=== PATIENT | female | born 1960 | race Caucasian/White ===

== ENCOUNTER 2025-03-17 22:32 | Inpatient (IN) | payer BC ==
[~2025-03-17] VITALS: Ht 170.2 cm; Wt 70.5 kg
[2025-03-17] MEDS: METOPROLOL TARTRATE 1MG/1ML-5ML VIAL IV ONE (22:46)
[2025-03-17] MEDS: METOPROLOL TARTRATE 1MG/1ML-5ML VIAL IV SCH (22:48)
--- NOTE | 2025-03-17 22:58 | ED.PDOC ---
HPI Comments A 65 year-old female, with a SHX of Pacemaker, presents to the ED with a chief complaint of heart palpitations with associated nausea as of 2100 today. Patient reports a recorded an elevated heart rate of 200's via watch, to which she called EMS for further care. Per EMS, patients heart rate recorded 230 BPM. Patient was given 3 rounds of Adenosine, 4mg IV, and Zofran en route. Upon evaluation by ED physician, patient reports the palpitations as "drum-like" with no associated alleviating factors. Patient additionally reports having a pacemaker for low heart rate. Patient has no further complaints at this time and otherwise denies further associated symptoms of emesis, abdominal pain, migraine, dizziness, or LOC at this time. Chief Complaint: Palpitations Time Seen by MD: 22:46 Reviewed Notes: Medications, Allergies Allergies: Coded Allergies: Aspirin (Verified Allergy, Unknown, 03/17/25) Ibuprofen (Verified Allergy, Unknown, 03/17/25) Information Source: Patient Mode of Arrival: EMS Severity: Moderate Timing: Hours Duration: Since onset Prehospital treatment: 12 Lead EKG, Other (Zofran ) Associated Signs and Symptoms: Palpitations Past Medical History PAST MEDICAL HISTORY: Denies Surgical History: Pacemaker ERADICATOR History: No Pertinent ERADICATOR History Family History Family History: Reviewed,noncontributory to illness, No family hx of Cancer, No family hx of DM, No family hx of Heart rubio, No family hx of HTN, No family hx ofKidney rubio, No family hx of Liver rubio, No family hx of Lung rubio, No family hx of Stroke Social History Smoker: Non-Smoker Alcohol: Denies ETOH Use Drugs: Denies Drug Use Lives In: Home Constitutional: denies: chills, diaphoresis, fatigue, fever, malaise, sweats, weakness, others EENTM: denies: blurred vision, double vision, ear bleeding, ear discharge, ear drainage, ear pain, ear ringing, eye pain, eye redness, hearing loss, mouth pain, mouth swelling, nasal discharge, nose bleeding, nose congestion, nose pain, photophobia, tearing, throat pain, throat swelling, voice changes, others Respiratory: denies: cough, hemoptysis, orthopnea, SOB at rest, shortness of breath, SOB with excertion, stridor, wheezing, others Cardiovascular: reports: palpitations; denies: chest pain, dizzy spells, diaphoresis, Dyspnea on exertion, edema, irregular heart beat, left arm pain, lightheadedness, PND, syncope, others Gastrointestinal: reports: nausea; denies: abdomen distended, abdominal pain, blood streaked bowels, constipated, diarrhea, dysphagia, difficulty swallowing, hematemesis, melena, poor appetite, poor fluid intake, rectal bleeding, rectal pain, vomiting, others Genitourinary: denies: abnormal vagina bleeding, burning, dyspareunia, dysuria, flank pain, frequency, hematuria, incontinence, pain, , vagina discharge, urgency, others Neurological: denies: dizziness, fainting, headache, left sided numbness, left sided weakness, numbness, paresthesia, pre-existing deficit, right sided numbness, right sided weakness, seizure, speech problems, tingling, tremors, weakness, others Musculoskeletal: denies: back pain, gout, joint pain, joint swelling, muscle pain, muscle stiffness, neck pain, others Integumetry: denies: bruises, change in color, change in hair/nails, dryness, laceration, lesions, lumps, rash, wounds, others Allergic/Immunocompromised: denies: Difficulty Healing, Frequent Infections, Hives, Itching, others Hematologic/Lymphatic: denies: anemia, blood clots, easy bleeding, easy bruising, swollen glands, others Endocrine: denies: excessive hunger, excessive sweating, excessive thirst, excessive urination, flushing, intolerance to cold, intolerance to heat, unexplained weight gain, unexplained weight loss, others Psychiatric: denies: anxiety, bipolar disorder, depression, hopeless, panic disorder, schizophrenia, sleepless, suicidal, others All Other Systems: Reviewed and Negative Physical Exam General Appearance: Mild Distress, Moderate Distress HEENT: Normal ENT Inspection, Pharynx Normal, TMs Normal Neck: Full Range of Motion, Non-Tender, Normal, Normal Inspection Respiratory: Chest Non-Tender, Lungs Clear, No Accessory Muscle Use, No Respiratory Distress, Normal Breath Sounds Cardiovascular: Tachycardia, Other (irregularly irregular rhythm) Breast Exam: Deferred Gastrointestinal: No Organomegaly, Non Tender, No Pulsatile Mass, Normal Bowel Sounds, Soft Genitalia: Deferred Pelvic: Deferred Rectal: Deferred Extremities: No calf tenderness, Normal capillary refill, Normal inspection, Normal range of motion, Non-tender, No pedal edema Musculoskeletal : Apperance: Normal Neurologic: Alert, top lifter II-XII nml as Tested, No Motor Deficits, Normal Affect, Normal Mood, No Sensory Deficits Cerebellar Function: Normal Reflexes: Normal Skin: Dry, Normal Color, Warm Lymphatic: No Adenopathy EKG EKG : Pulse Rate (adult): 161 Cardiac Rhythm: Afib Was a procedure done? Was a procedure done?: No CP Differential Dx Differential Diagnosis: A-fib Differential Diagnosis: HTN Essential Differential Diagnosis: Chest Wall Pain X-Ray, Labs, Meds, VS Vital Signs Date Time Temp Pulse Resp B/P (MAP) Pulse Ox O2 Delivery O2 Flow Rate FiO2 03/17/25 23:34 139 19 96 Room Air* 0 21 03/17/25 23:23 131 117/50 03/17/25 22:58 138 17 109/77 (88) 96 03/17/25 22:58 161 03/17/25 22:48 166 164/84 03/17/25 22:35 161 03/17/25 22:32 98.2 215 20 138/80 (99) 98 98.2 03/17/25 22:32 98 Room Air* 0 21 Lab Test 03/17/25 23:29 03/17/25 22:57 Range/Units Urine Color Colorless Yellow Urine Clarity Clear Clear Urine pH 7.0 5.0-9.0 Urine Specific [place] 1.003 1.001-1.035 Urine Protein Negative Negative Urine Ketones Trace Negative Urine Blood Negative Negative /uL Urine Nitrite Negative Negative Urine Bilirubin Negative Negative Urine Urobilinogen Normal Negative mg/dL Urine Leukocyte Esterase Negative Negative /uL Urine RBC <1 0 - 4 /hpf Urine Microscopic WBC 2 0-5 /HPF Urine Squamous Epithelial Cells Few <5 /hpf Urine Bacteria None seen None Seen /hpf Urine Glucose Normal Normal mg/dL White Blood Count 6.4 4.4-10.8 10^3/uL Red Blood Count 5.57 H 4.0-5.20 10^6/uL Hemoglobin 17.0 H 12.2-16.2 g/dL Hematocrit 49.7 H 36.0-46.0 % Mean Corpuscular Volume 89.2 80.0-100.0 fL Mean Corpuscular Hemoglobin 30.5 28.0-32.0 pg Mean Corpuscular Hemoglobin Concent 34.3 32.0-36.0 g/dL Red Cell Distribution Width 13.5 11.8-14.3 % Platelet Count 218 140-450 10^3/uL Mean Platelet Volume 7.6 6.9-10.8 fL Neutrophils (%) (Auto) 55.1 37.0-80.0 % Lymphocytes (%) (Auto) 33.7 10.0-50.0 % Monocytes (%) (Auto) 8.8 0.0-12.0 % Eosinophils (%) (Auto) 1.7 0.0-7.0 % Basophils (%) (Auto) 0.7 0.0-2.0 % Neutrophils # (Auto) 3.5 1.6-8.6 10 ^3/uL Lymphocytes # (Auto) 2.1 0.4-5.4 10 ^3/uL Monocytes # (Auto) 0.6 0-1.3 10 ^3/uL Eosinophils # (Auto) 0.1 0-0.8 10 ^3/uL Basophils # (Auto) 0 0-0.2 10 ^3/uL Nucleated Red Blood Cells 0.1 % Prothrombin Time 10.3 9.3-11.8 sec Prothrombin Time INR 0.97 0.9-1.15 Activated Partial Thromboplast Time 26.2 24.5-34.5 SEC Sodium Level 146 H 136-145 mmol/L Potassium Level 3.7 3.5-5.1 mmol/L Chloride Level 110 H 98-107 mmol/L Carbon Dioxide Level 25 20-31 mmol/L Anion Gap 11 5-15 Blood Urea Nitrogen 18 9-23 mg/dL Creatinine 0.81 0.550-1.02 mg/dL Glomerular Filtration Rate Calc 82 >90 mL/min BUN/Creatinine Ratio 22.2 H 10.0-20.0 Serum Glucose 112 H 74-106 mg/dL Calcium Level 9.7 8.7-10.4 mg/dL Total Bilirubin 0.6 0.2-1.0 mg/dL Aspartate Amino Transferase (AST) 29 13-40 U/L Alanine Aminotransferase (ALT) 26 7-40 U/L Alkaline Phosphatase 85 46-116 U/L Troponin I High Sensitivity 3 L </=34 ng/L Total Protein 7.2 5.7-8.2 g/dL Albumin 4.6 3.2-4.8 g/dL Thyroid Stimulating Hormone (TSH) 2.67 0.55-4.78 uIU/mL Free Thyroxine (T4) Calculated Pending Current Medications Medications (Trade) Dose Ordered Sig/Lyndsey Route Start Time Stop Time Status Last Admin Metoprolol Tartrate (Lopressor) 5 mg Q5M IV 03/17/25 22:45 03/17/25 22:48 [place] [id number] Ph: [phone] DIAGNOSTIC IMAGING Diagnostic Imaging Report : [id number] Signed PATIENT: WALT BILLS ACCT: [id number] UNIT: [id number] : 1960 LOC: ER ROOM / BED: / AGE / SEX: 65 / F ADM STATUS: REG ER SERVICE 38 ORDERING PHYSICIAN: FABY MACKAY MD PROCEDURE(s): CXRP - CHEST PORTABLE REASON: chest pain ORDER NUMBER(s): [id number], ACCESSION NUMBER(s): [id number] CHEST RADIOGRAPH Indication: chest pain Technique: Single frontal view of the chest was obtained COMPARISON: None FINDINGS: Lines and Tubes: Pacemaker/ AICD in the left upper chest with 2 cardiac leads. Lungs: Clear Pleura: No effusion. No pneumothorax. Cardiomediastinal contours: Unremarkable Bones: Unremarkable IMPRESSION: 1. No acute disease. Time of 1ST Reevaluation: 23:01 Reevaluation 1ST: Unchanged Patient Education/Counseling: Diagnosis, Treatment Family Education/Counseling: No Family Present SEPSIS Sepsis Screen Physician Orders Electrocardigram (03/17/25 22:38) Electrocardigram (03/17/25 23:38) Electrocardigram (03/18/25 01:38) Troponin-I Hs (03/18/25 00:00) Troponin-I Hs (03/18/25 03:00) Troponin-I Hs (03/18/25 06:00) Chest Portable (03/17/25 22:39) Troponin-I Hs (03/18/25 01:39) Free T4 (Free Thyroxine) (03/17/25 22:39) Metoprolol Inj (Lopressor) (03/17/25 22:45) Amiodarone Bolus Kit (Cordarone) (03/17/25 23:45) Amiodarone 360mg/200ml Premix (Nexterone (03/18/25 00:00) Amiodarone 360mg/200ml Premix (Nexterone (03/18/25 06:00) Vital Signs Date Time Temp Pulse Resp B/P (MAP) Pulse Ox O2 Delivery O2 Flow Rate FiO2 03/17/25 23:34 139 19 96 Room Air* 0 21 03/17/25 23:23 131 117/50 03/17/25 22:58 138 17 109/77 (88) 96 03/17/25 22:58 161 03/17/25 22:48 166 164/84 03/17/25 22:35 161 03/17/25 22:32 98.2 215 20 138/80 (99) 98 98.2 03/17/25 22:32 98 Room Air* 0 21 Laboratory Tests Test 03/17/25 22:57 White Blood Count 6.4 10^3/uL (4.4-10.8) Medications Medications Dose Ordered Sig/Lyndsey Route Start Time Stop Time Status Last Admin Dose Admin Metoprolol Tartrate 5 mg Q5M IV 03/17/25 22:45 03/17/25 22:48 Departure 1 Departure Time of Disposition: 23:50 Impression: Primary Impression: New onset atrial fibrillation Additional Impression: Atrial fibrillation with rapid ventricular response Disposition: ADMITTED INPATIENT Condition: Stable Discharged With: Self Comments Atrial Fibrillation with Rapid Ventricular Response in Patient with Recent Pacemaker Chief Complaint: Palpitations, 'racing heart' History of Present Illness: Patient is a 65-year-old female with a history of bradycardic arrhythmias who recently received a pacemaker. She presented to the emergency department via ambulance after experiencing palpitations described as her heart 'racing and pounding' at home. EMS noted the patient had a tachycardic irregular rhythm during transport. Upon arrival to the ED, the patient was found to be in atrial fibrillation with a tachycardic irregularly irregular rhythm. Her heart rate was elevated at approximately 140-150 beats per minute. This appears to be new onset atrial fibrillation with rapid ventricular response in a patient with a recently placed pacemaker. Review of Systems: Limited by acute presentation. Cardiovascular: Palpitations, sensation of racing heart. Constitutional: No fever reported. Respiratory: No shortness of breath documented. Neurological: Alert and oriented, no syncope reported. Medications: Home medications not specified in net developer architect. Medications administered in ED: - Metoprolol (Lopressor) 5 mg IV boluses - Amiodarone 150 mg IV bolus, followed by continuous infusion Allergies: Not documented in net developer architect Past Medical History: Bradycardic arrhythmias Recent pacemaker placement Vital Signs: Heart Rate: Initially 140-150 bpm, decreased to 120 bpm after Lopressor administration Blood Pressure: Decreased to 95 mmHg systolic after Lopressor administration Other vital signs not documented in net developer architect Physical Exam: Cardiovascular: Irregularly irregular rhythm, tachycardic at 140-150 bpm initially Other physical exam findings not documented in net developer architect Lab Results: CBC: Unremarkable Chemistry Panel: - Sodium: 146 mEq/L (elevated) - Chloride: 110 mEq/L (elevated) - Other electrolytes: Within normal limits Cardiac Enzymes: - Troponin: 3 ng/mL (within normal limits) Imaging and Other Relevant Results: Chest X-ray: No acute pathology Medical Decision Making: Summary Statement: 65-year-old female with recent pacemaker placement for bradycardic arrhythmias presenting with new onset atrial fibrillation with rapid ventricular response, requiring rate control and admission for further management. Problem List: 1. New onset atrial fibrillation with rapid ventricular response 2. Recent pacemaker placement 3. Possible acute coronary syndrome 4. Mild electrolyte abnormalities (elevated sodium and chloride) Differential Diagnosis: 1. Pacemaker malfunction or inappropriate programming 2. Primary new onset atrial fibrillation 3. Acute coronary syndrome triggering arrhythmia 4. Electrolyte imbalance contributing to arrhythmia 5. Pulmonary embolism 6. Thyroid dysfunction ED Course: Patient initially treated with IV Metoprolol (Lopressor) 5 mg boluses for rate control, which reduced heart rate from 150 to 120 bpm but caused hypotension with systolic BP of 95 mmHg. Treatment was switched to Amiodarone 150 mg IV bolus followed by continuous infusion. Diagnostic workup included CBC, chemistry panel, cardiac enzymes, and chest X-ray. Decision made to admit patient for management of new onset atrial fibrillation with RVR and to rule out acute coronary syndrome. Assessment and Plan: 1. New Onset Atrial Fibrillation with Rapid Ventricular Response: - Continue Amiodarone infusion for rate and rhythm control - Cardiology consultation for management recommendations - Evaluate for potential causes of new onset atrial fibrillation - Assess pacemaker function and settings - Consider anticoagulation based on GLENN?DS?-VASc score 2. Recent Pacemaker Placement: - Obtain device interrogation to assess pacemaker function - Review recent implantation records - Evaluate for potential device-related complications 3. Rule Out Acute Coronary Syndrome: - Serial cardiac enzymes - ECG monitoring - Consider stress testing or cardiac catheterization if indicated 4. Electrolyte Management: - Monitor and correct mild electrolyte abnormalities (sodium 146 mEq/L, chloride 110 mEq/L) - Repeat electrolyte panel in the morning 5. Disposition: - Admit to telemetry unit under cardiology service - Continue cardiac monitoring - Reassess treatment plan based on response to therapy Additional Notes: Patient arrived via ambulance with tachycardia, diagnosed with new onset atrial fibrillation with RVR, requiring admission. Billing Information: ICD-10: I48.91 - Unspecified atrial fibrillation ICD-10: R00.0 - Tachycardia, unspecified ICD-10: Z95.0 - Presence of cardiac pacemaker Critical Care Note Critical Care Time?: Yes (35 min-critical care time only) Critical care comment: Total critical care time: Approximately 36 minutes Due to a high probability of clinically significant, life threatening deterioration, the patient required my highest level of preparedness to intervene emergently and I personally spent this critical care time directly and personally managing the patient. This critical care time included obtaining a history; examining the patient; pulse oximetry; ordering and review of studies; arranging urgent treatment with development of a management plan; evaluation of patient's response to treatment; frequent reassessment; and, discussions with other providers. This critical care time was performed to assess and manage the high probability of imminent, life-threatening deterioration that could result in multi-organ failure. It was exclusive of separately billable procedures and treating other patients. Stability Stability form required: No Heart Score Heart Score: Heart Score Response (Comments) Value History Moderate Suspicious 1 EKG Repolarization Disturb 1 Age 45-64 1 Risk Factors 1 or 2 risk factors 1 Troponin Normal limit 0 Total 4 I personally scribed for FABY MACKAY MD ([email or web address]) on 03/17/25 at 22:58. Electronically submitted by Joanne Kwon ([employer]). I personally scribed for FABY MACKAY MD ([email or web address]) on 03/17/25 at 23:10. El ectronically submitted by Joanne Kwon ([employer]). I personally scribed for FABY MACKAY MD ([facility]ARILYS) on 03/17/25 at 23:31. Electronically submitted by Joanne Kwon ([facility]). FABY MACKAY MD Mar 17, 2025 22:58
[2025-03-17 23:03] LABS: Hematocrit 49.7 % (36.0-46.0); Hemoglobin 17.0 g/dL (12.2-16.2); Mean Corpuscular Hemoglobin 30.5 pg (28.0-32.0); Mean Corpuscular Volume 89.2 fL (80.0-100.0); Nucleated Red Blood Cells % 0.1 %
--- NOTE | 2025-03-17 23:08 | DVH ---
CHEST RADIOGRAPH Indication: chest pain Technique: Single frontal view of the chest was obtained COMPARISON: None FINDINGS: Lines and Tubes: Pacemaker/ AICD in the left upper chest with 2 cardiac leads. Lungs: Clear Pleura: No effusion. No pneumothorax. Cardiomediastinal contours: Unremarkable Bones: Unremarkable IMPRESSION: 1. No acute disease.
[2025-03-17 23:18] LABS: INR 0.97 (0.9-1.15); Partial Thromboplastin Time 26.2 SEC (24.5-34.5); Prothrombin Time 10.3 sec (9.3-11.8)
[2025-03-17 23:24] LABS: Alanine Aminotransferase 26 U/L (7-40); Albumin 4.6 g/dL (3.2-4.8); Alkaline Phosphatase 85 U/L (46-116); Anion Gap 11 (5-15); BUN/Creatinine Ratio 22.2 (10.0-20.0); Blood Urea Nitrogen 18 mg/dL (9-23); Calcium 9.7 mg/dL (8.7-10.4); Carbon Dioxide 25 mmol/L (20-31); Potassium 3.7 mmol/L (3.5-5.1); Total Protein 7.2 g/dL (5.7-8.2)
[2025-03-17 23:25] LABS: Bilirubin, Total 0.6 mg/dL (0.2-1.0)
[2025-03-17 23:27] LABS: Chloride 110 mmol/L (98-107); Glucose 112 mg/dL (74-106); Sodium 146 mmol/L (136-145)
[2025-03-17 23:34] VITALS: PULSE 139; RESP 19; O2SAT 96
[2025-03-17 23:40] LABS: Urine Protein, UAD Negative (Negative)
[2025-03-17] MEDS: AMIODARONE BOLUS KIT 100 ML IV ONE (23:53)
[2025-03-18] VITALS (14 sets, daily range): BP systolic 81–104; BP diastolic 39–78; PULSE 65–120; RESP 10–23; TEMP 98–98.4; O2SAT 93–97
[2025-03-18] MEDS: AMIODARONE 360mg/200mL PREMIX 200 ML IV ONE (00:02)
[2025-03-18] MEDS: ONDANSETRON HCL 4 MG/2 ML VIAL IV ONE (00:22)
[2025-03-18] MEDS: METOPROLOL TARTRATE 1MG/1ML-5ML VIAL IV ONE (05:08)
[2025-03-18] MEDS: SODIUM CHLORIDE 0.9% 500 ML IV ONE (05:42)
[2025-03-18] MEDS: AMIODARONE 360mg/200mL PREMIX 200 ML IV SCH (05:57)
[2025-03-18] MEDS ORDERED: NITROGLYCERIN 0.4 MG SL TAB SL PRN (06:15)
[2025-03-18] MEDS ORDERED: MORPHINE SULFATE INJ 2 MG/ml SYRG IV PRN (06:15)
--- NOTE | 2025-03-18 06:54 | DVHHP2 ---
Admitting Diagnosis: Afib RVR History of Present Illness HPI 65 y.o. female with AICD/pacemaker arrived to the ED c/o palpitations with HR 200 with nausea for one day. Paramedics reported recorded HR of 230. Patient was given of Adenosine 4mg IV x3 and Zofran en route. Patient denied CP, SOB an other symptoms. ER MD started Amiodarone IV the decreased the HR to 110-115. Past Medical History Past Surgical History: AICD Review of Systems Cardiovascular: Palpitations H&P Exam Vital Signs Vital Signs Date Time Temp Pulse Resp B/P (MAP) Pulse Ox O2 Delivery O2 Flow Rate FiO2 03/18/25 05:08 114 96/51 03/18/25 05:00 17 96 03/17/25 23:34 Room Air* 0 21 03/17/25 22:32 98.2 98.2 General Appeara: Obese Head Exam: Normal inspection Neck Exam: Non-tender Eye Exam: bilateral eye PERRL, bilateral eye EOMI Pulmonary/Respiratory: Lungs clear Cardiovascular/Chest: Tachycardia Neuro/Mental St: Alert, Oriented SEPSIS Sepsis Screen Date sepsis recognized/suspect: Mar 17, 2025 Time Sepsis recognized/suspect: 2231 Recent Procedure: No On Antibiotic Therapy: No Respiratory Rate >20: No Heart Rate >90: Yes Temp<36 C (96.8 F) or >38.3 C: No SBP <90 or MAP <65 mmHG: No New Acute Mental Status Change: No Is the patient on CPAP, BIPAP,: No Physician Orders Electrocardigram (03/17/25 22:38) Electrocardigram (03/17/25 23:38) Electrocardigram (03/18/25 01:38) Chest Portable (03/17/25 22:39) Free T4 (Free Thyroxine) (03/17/25 22:39) Amiodarone 360mg/200ml Premix (Nexterone (03/18/25 06:00) Sodium Chloride 0.9% (03/18/25 05:45) Admit (03/18/25 06:06) * Cardiology Consult (03/18/25 06:06) Complete Blood Count (03/19/25 06:00) Comprehensive Metabolic Panel (03/18/25 06:00) Echo 2d Mode Cardiac Dop (03/18/25 06:06) Nitroglycerin Sublingual (Ntrostat Subli (03/18/25 06:15) Morphine Sulfate Injection (03/18/25 06:15) Stat Ekg For Chest Pain (03/18/25 06:06) Notify Of Changes From Base (03/18/25 06:06) Public Health Microbiologist For 24 Hours (03/18/25 06:06) Emergency Dysrhythmia Protocol (03/18/25 06:06) Rhythm Strips Once Every Shift (03/18/25 06:06) Oxygen By Nasal Cannula (03/18/25 06:06) Vital Signs Date Time Temp Pulse Resp B/P (MAP) Pulse Ox O2 Delivery O2 Flow Rate FiO2 03/18/25 05:08 114 96/51 03/18/25 05:00 114 17 96/51 (66) 96 03/18/25 04:30 115 18 85/54 (64) 97 03/18/25 04:00 114 18 87/57 (67) 97 03/18/25 03:30 113 16 112/52 (72) 96 03/18/25 02:30 116 03/18/25 02:00 117 20 92/58 (69) 96 03/18/25 01:15 119 17 98/66 (77) 95 03/18/25 00:00 119 16 95/59 (71) 96 03/17/25 23:34 139 19 96 Room Air* 0 21 03/17/25 23:23 131 117/50 03/17/25 23:10 103 03/17/25 23:05 103 03/17/25 22:58 138 17 109/77 (88) 96 03/17/25 22:58 161 03/17/25 22:55 134 91/56 03/17/25 22:48 166 164/84 03/17/25 22:38 173 Laboratory Tests Test 03/17/25 22:57 White Blood Count 6.4 10^3/uL (4.4-10.8) Medications Medications Dose Ordered Sig/Lyndsey Route Start Time Stop Time Status Last Admin Dose Admin Amiodarone HCl 100 ml @ 600 mls/hr ONCE ONCE IV 03/17/25 23:45 03/17/25 23:54 DC 03/17/25 23:53 600 MLS/HR Metoprolol Tartrate 5 mg Q5M IV 03/17/25 22:45 03/18/25 04:25 DC 03/17/25 22:48 5 MG Ondansetron HCl 4 mg ONCE ONCE IV 03/18/25 00:30 03/18/25 00:31 DC 03/18/25 00:22 4 MG Sodium Chloride 500 ml @ 500 mls/hr Q1H ONCE IV 03/18/25 05:45 03/18/25 06:44 03/18/25 05:42 500 MLS/HR Labs/Xrays Labs Test 03/18/25 00:18 03/17/25 23:29 03/17/25 22:57 Range/Units Troponin I High Sensitivity 8 </=34 ng/L Urine Color Colorless Yellow Urine Clarity Clear Clear Urine pH 7.0 5.0-9.0 Urine Specific [place] 1.003 1.001-1.035 Urine Protein Negative Negative Urine Ketones Trace Negative Urine Blood Negative Negative /uL Urine Nitrite Negative Negative Urine Bilirubin Negative Negative Urine Urobilinogen Normal Negative mg/dL Urine Leukocyte Esterase Negative Negative /uL Urine RBC <1 0 - 4 /hpf Urine Microscopic WBC 2 0-5 /HPF Urine Squamous Epithelial Cells Few <5 /hpf Urine Bacteria None seen None Seen /hpf Urine Glucose Normal Normal mg/dL White Blood Count 6.4 4.4-10.8 10^3/uL Red Blood Count 5.57 H 4.0-5.20 10^6/uL Hemoglobin 17.0 H 12.2-16.2 g/dL Hematocrit 49.7 H 36.0-46.0 % Mean Corpuscular Volume 89.2 80.0-100.0 fL Mean Corpuscular Hemoglobin 30.5 28.0-32.0 pg Mean Corpuscular Hemoglobin Concent 34.3 32.0-36.0 g/dL Red Cell Distribution Width 13.5 11.8-14.3 % Platelet Count 218 140-450 10^3/uL Mean Platelet Volume 7.6 6.9-10.8 fL Neutrophils (%) (Auto) 55.1 37.0-80.0 % Lymphocytes (%) (Auto) 33.7 10.0-50.0 % Monocytes (%) (Auto) 8.8 0.0-12.0 % Eosinophils (%) (Auto) 1.7 0.0-7.0 % Basophils (%) (Auto) 0.7 0.0-2.0 % Neutrophils # (Auto) 3.5 1.6-8.6 10 ^3/uL Lymphocytes # (Auto) 2.1 0.4-5.4 10 ^3/uL Monocytes # (Auto) 0.6 0-1.3 10 ^3/uL Eosinophils # (Auto) 0.1 0-0.8 10 ^3/uL Basophils # (Auto) 0 0-0.2 10 ^3/uL Nucleated Red Blood Cells 0.1 % Prothrombin Time 10.3 9.3-11.8 sec Prothrombin Time INR 0.97 0.9-1.15 Activated Partial Thromboplast Time 26.2 24.5-34.5 SEC Thyroid Stimulating Hormone (TSH) 2.67 0.55-4.78 uIU/mL Assessment/Plan Problem List: (1) Atrial fibrillation with rapid ventricular response (2) AICD (automatic cardioverter/defibrillator) present Plan Continue Amiodarone, ECHO, consult cardiology Plan discussed with: Patient MAGNOLIA MARIA MD Mar 18, 2025 06:54
[2025-03-18 08:22] LABS: Alanine Aminotransferase 22 U/L (7-40); Albumin 4.1 g/dL (3.2-4.8); Alkaline Phosphatase 69 U/L (46-116); Anion Gap 9 (5-15); BUN/Creatinine Ratio 20.7 (10.0-20.0); Blood Urea Nitrogen 17 mg/dL (9-23); Calcium 9.4 mg/dL (8.7-10.4); Carbon Dioxide 25 mmol/L (20-31); Total Protein 6.2 g/dL (5.7-8.2)
[2025-03-18 08:23] LABS: Bilirubin, Total 0.4 mg/dL (0.2-1.0)
[2025-03-18 08:25] LABS: Chloride 110 mmol/L (98-107); Glucose 109 mg/dL (74-106); Potassium 4.2 mmol/L (3.5-5.1); Sodium 144 mmol/L (136-145)
--- NOTE | 2025-03-18 09:13 | ECG ---
[facility] Test Date: 2025-03-18 Test Time: 09:12:02 Pat Name: WALT BILLS Department: ED Room: [address] [place] [id number] Gender: F Systems Protection Technician: MIKE : 1960 Requested By: EMERGENCY EMERGENCY Order Number: [id number] Reading MD: Jai Lennon Measurements Intervals [place] Rate: 114 P: 0 NC: 0 QRS: 73 QRSD: 84 T: 33 QT: 333 QTc: 459 Interpretive Statements Atrial fibrillation Low voltage, precordial leads Electronically Signed On 03-21-2025 17:48:09 PDT by Jai Lennon Please click the below link to view image of tracing.
--- NOTE | 2025-03-18 14:39 | DVHSR ---
APPROVED REPORT EXAM: LIMITED Two-dimensional and M-mode echocardiogram with Doppler and color Doppler. Blood Pressure: 102/63 mmHg INDICATION Atrial Fibrillation W/RVR RISK FACTORS Height: 5' 7", Weight: 150 DIMENSIONS LVDd3.8 (3.8-5.7cm)LA (2D)3.3 (1.9-4.0cm)Aortic Root2.9 (2.0-3.7cm) LVDs2.9 (2.5-4.0cm)LA (MM) (1.9-4.0cm)Aortic Cusp Exc1.5 (1.5-2.0cm) EF (%) 47.0 (55-70%)Rt. Atrium3.4 (1.9-4.0cm)Asc. Aorta cm IVSd1.0 (0.7-1.1cm)RV (D) (1.8-2.4cm) PWd0.9 (0.7-1.1cm) Mitral Valve MitralMitral Stenosis E wave0.70m/sMV Mean GR.mmHg E/A ratio0.02D MVAcm2 Aortic Valve Aortic ValveAortic Stenosis V10.70m/Leydi Mean GR.2mmHg V20.80m/Leydi Peak GR.3mmHg LVOT Diameter2.2 (1.8-2.4cm)Doppler AVA3.32cm2 Pulmonic Valve V20.50m/s Conclusion MILD LVH AND MILD LV DIASTOLIC DYSFUNCTION LV EF IS 45% AND IS BORDERLINE EDUCED DYSKINESIS OF IVS MODERATELY DILATED RV NORMAL VALVES NO EFFUSION
[2025-03-18] MEDS: AMIODARONE HCL 200 MG TAB PO ONE (14:58)
[2025-03-18] MEDS: DIGOXIN (250MCG/ML) 2 ML AMPULE IV ONE (14:59)
[2025-03-18] MEDS: LACTATED RINGER'S 1,000 ML IV ONE (17:15)
--- NOTE | 2025-03-18 18:16 | DVHINCON2 ---
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 Patient reports a recorded elevated heart rate in the 200's from her smart watch, to which she called EMS for further care. Per EMS, patients heart rate was recorded at 230 BPM. Patient was given of Adenosine 4mg IV x3 and Zofran en route. Patient describes the heart palpitations as "drum-like" with no associated alleviating factors. Troponin is negative x2. Chest x-ray showed NAD.EKG in the ED showed A Fib at 161. Patient was admitted to the hospital. I am asked to consult on this patient. Allergies: Coded Allergies: Aspirin (Verified Allergy, Unknown, 03/17/25) Ibuprofen (Verified Allergy, Unknown, 03/17/25) Current Medications Current Medications Medications (Trade) Dose Ordered Sig/Lyndsey Route PRN Reason Start Time Stop Time Status Last Admin Metoprolol Tartrate (Lopressor) 5 mg Q5M IV 03/17/25 22:45 03/18/25 04:25 DC 03/17/25 22:48 Nitroglycerin (Ntrostat Sublingual) 0.4 mg Q5MINP PRN SL FOR CHEST PAIN 03/18/25 06:15 Morphine Sulfate 2 mg Q30M PRN IV FOR CHEST PAIN 03/18/25 06:15 Review of Systems Constitutional: denies: chills, diaphoresis, fatigue, fever, malaise, sweats, weakness, others EENTM: denies: blurred vision, double vision, ear bleeding, ear discharge, ear drainage, ear pain, ear ringing, eye pain, eye redness, hearing loss, mouth pain, mouth swelling, nasal discharge, nose bleeding, nose congestion, nose pain, photophobia, tearing, throat pain, throat swelling, voice changes, others Respiratory: denies: cough, hemoptysis, orthopnea, SOB at rest, shortness of breath, SOB with excertion, stridor, wheezing, others Cardiovascular: reports: palpitations; denies: chest pain, dizzy spells, diaphoresis, Dyspnea on exertion, edema, irregular heart beat, left arm pain, lightheadedness, PND, syncope, others Gastrointestinal: reports: nausea; denies: abdomen distended, abdominal pain, blood streaked bowels, constipated, diarrhea, dysphagia, difficulty swallowing, hematemesis, melena, poor appetite, poor fluid intake, rectal bleeding, rectal pain, vomiting, others Genitourinary: denies: abnormal vagina bleeding, burning, dyspareunia, dysuria, flank pain, frequency, hematuria, incontinence, pain, , vagina discharge, urgency, others Neurological: denies: dizziness, fainting, headache, left sided numbness, left sided weakness, numbness, paresthesia, pre-existing deficit, right sided numbness, right sided weakness, seizure, speech problems, tingling, tremors, weakness, others Musculoskeletal: denies: back pain, gout, joint pain, joint swelling, muscle pain, muscle stiffness, neck pain, others Integumetry: denies: bruises, change in color, change in hair/nails, dryness, laceration, lesions, lumps, rash, wounds, others Allergic/Immunocompromised: denies: Difficulty Healing, Frequent Infections, Hives, Itching, others Hematologic/Lymphatic: denies: anemia, blood clots, easy bleeding, easy bruising, swollen glands, others Endocrine: denies: excessive hunger, excessive sweating, excessive thirst, excessive urination, flushing, intolerance to cold, intolerance to heat, unexplained weight gain, unexplained weight loss, others Psychiatric: denies: anxiety, bipolar disorder, depression, hopeless, panic disorder, schizophrenia, sleepless, suicidal, others All Other Systems: Reviewed and Negative Vital Signs Vital Signs Date Time Temp Pulse Resp B/P (MAP) Pulse Ox O2 Delivery O2 Flow Rate FiO2 03/18/25 10:00 16 96 Room Air* 0 21 03/18/25 10:00 113 100/78 (85) 03/18/25 08:51 98.0 98.0 Physical Exam GENERAL: Alert and oriented x 3. No acute distress. Obese. EYES: PERRL, EOMI. Anicteric. HENT: Moist mucous membranes. LUNGS: Clear to auscultation bilaterally. CARDIOVASCULAR: Irregular rate and rhythm. ABDOMEN: Soft, nontender and nondistended. EXTREMITIES: No edema. NEUROLOGIC: No focal neurological deficits. SKIN: Warm, dry. Labs/Diagnostic Data Labs Test 03/18/25 07:53 03/18/25 00:18 03/17/25 23:29 03/17/25 22:57 Range/Units Sodium Level 144 136-145 mmol/L Potassium Level 4.2 3.5-5.1 mmol/L Chloride Level 110 H 98-107 mmol/L Carbon Dioxide Level 25 20-31 mmol/L Anion Gap 9 5-15 Blood Urea Nitrogen 17 9-23 mg/dL Creatinine 0.82 0.550-1.02 mg/dL Glomerular Filtration Rate Calc 80 >90 mL/min BUN/Creatinine Ratio 20.7 H 10.0-20.0 Serum Glucose 109 H 74-106 mg/dL Calcium Level 9.4 8.7-10.4 mg/dL Magnesium Level 2.0 1.6-2.6 mg/dL Total Bilirubin 0.4 0.2-1.0 mg/dL Aspartate Amino Transferase (AST) 25 13-40 U/L Alanine Aminotransferase (ALT) 22 7-40 U/L Alkaline Phosphatase 69 46-116 U/L Total Protein 6.2 5.7-8.2 g/dL Albumin 4.1 3.2-4.8 g/dL Troponin I High Sensitivity 8 </=34 ng/L Urine Color Colorless Yellow Urine Clarity Clear Clear Urine pH 7.0 5.0-9.0 Urine Specific [place] 1.003 1.001-1.035 Urine Protein Negative Negative Urine Ketones Trace Negative Urine Blood Negative Negative /uL Urine Nitrite Negative Negative Urine Bilirubin Negative Negative Urine Urobilinogen Normal Negative mg/dL Urine Leukocyte Esterase Negative Negative /uL Urine RBC <1 0 - 4 /hpf Urine Microscopic WBC 2 0-5 /HPF Urine Squamous Epithelial Cells Few <5 /hpf Urine Bacteria None seen None Seen /hpf Urine Glucose Normal Normal mg/dL White Blood Count 6.4 4.4-10.8 10^3/uL Red Blood Count 5.57 H 4.0-5.20 10^6/uL Hemoglobin 17.0 H 12.2-16.2 g/dL Hematocrit 49.7 H 36.0-46.0 % Mean Corpuscular Volume 89.2 80.0-100.0 fL Mean Corpuscular Hemoglobin 30.5 28.0-32.0 pg Mean Corpuscular Hemoglobin Concent 34.3 32.0-36.0 g/dL Red Cell Distribution Width 13.5 11.8-14.3 % Platelet Count 218 140-450 10^3/uL Mean Platelet Volume 7.6 6.9-10.8 fL Neutrophils (%) (Auto) 55.1 37.0-80.0 % Lymphocytes (%) (Auto) 33.7 10.0-50.0 % Monocytes (%) (Auto) 8.8 0.0-12.0 % Eosinophils (%) (Auto) 1.7 0.0-7.0 % Basophils (%) (Auto) 0.7 0.0-2.0 % Neutrophils # (Auto) 3.5 1.6-8.6 10 ^3/uL Lymphocytes # (Auto) 2.1 0.4-5.4 10 ^3/uL Monocytes # (Auto) 0.6 0-1.3 10 ^3/uL Eosinophils # (Auto) 0.1 0-0.8 10 ^3/uL Basophils # (Auto) 0 0-0.2 10 ^3/uL Nucleated Red Blood Cells 0.1 % Prothrombin Time 10.3 9.3-11.8 sec Prothrombin Time INR 0.97 0.9-1.15 Activated Partial Thromboplast Time 26.2 24.5-34.5 SEC Thyroid Stimulating Hormone (TSH) 2.67 0.55-4.78 uIU/mL Assessment Atrial fibrillation with rapid ventricular response. AICD (automatic cardioverter/defibrillator). Plan/Recommendation I agree with your ongoing assessment and care of plan. Amiodarone. Eliquis. Digoxin. Nitro SL. Morphine for pain management. Additional plan as per the hospital course. Critical care time of 90 minutes provided to include time spent evaluation of patient at bedside, when appropriate patient/family education for diagnosis, treatment plan, review of pertinent medical information and discussion of care with specialty providers and PCP. Plan discussed with: Patient CHRISTIE GARCIA MD Mar 18, 2025 12:47
[2025-03-18] MEDS: APIXABAN 5 MG TAB PO SCH (21:43)
[2025-03-18] MEDS: AMIODARONE HCL 200 MG TAB PO SCH (21:43)
--- NOTE | 2025-03-19 00:59 | DVHINCON2 ---
DATE OF CONSULTATION: 03/18/2025 HISTORY OF PRESENT ILLNESS: This patient is a 65-year-old white lady seen in the Emergency Room #5 with our nursing staff over here and Dr. Parish Truong called me. He and myself both discussed the case for two times. The patient's family is also at the bedside. The patient came to the Emergency Room because of the onset of palpitation. Paramedics noted heart rate of 230. The patient was given adenosine, total of three rounds and heart rate subsequently settled and brought over here. She has taken some new [id number] medicines vitamins, but unknown. history of permanent pacemaker done performed by Dr. Lennon 4 years ago. No smoke. No alcohol. No drugs. PAST SURGICAL HISTORY: Previous surgical history includes pacemaker surgery. PAST MEDICAL HISTORY: No heart attack, no heart failure. No history of pulmonary embolism. No history of deep venous thrombosis. No history of any recent illness or any infection. REVIEW OF SYSTEMS: Done. PHYSICAL EXAMINATION: GENERAL: Awake, alert, and oriented. lady. VITAL SIGNS: Blood pressure 104/50, heart rate 110 per minute. LUNGS: Decreased breath sounds noted. HEART: Sounds regular. The patient has atrial fibrillation. CARDIOVASCULAR: Normal. ABDOMEN: Soft. Bowel sounds normal. CENTRAL NERVOUS SYSTEM: Negative. LABORATORY DATA: Reviewed and are as follows: WBC 6.4, hemoglobin 17.2, hematocrit 49.7. Potassium 4.2, glucose 109. Urine tests all have been negative. DIAGNOSES: This patient has been now found to have: * Atrial fibrillation with rapid ventricular response. * History of permanent pacemaker. PLAN OF ACTION: At this time, the patient is getting amiodarone drip. The patient also got metoprolol 5 mg IV push according to the information x2. She also got 500 mL of normal saline bolus. The plan of action is as follows: * At this time, we are safe to give digoxin 0.5 mg IV push followed by 0.125 mg p.o. daily. She already has pacemaker. It is safe to give digoxin because she has a pacemaker. * She has been advised to have amiodarone 400 mg p.o. now followed by 200 b.i.d. * Eliquis 5 mg twice a day and outpatient followup in the next few days. Counseling done, questions answered, discussion done. At this time, ideally, she needs a beta-bailey like metoprolol, but her blood pressure is on the lower side. At this time, I prefer to put her on amiodarone and digoxin until we see her for further. The indications and risks of Eliquis also have been discussed. Full counseling was provided. The patient was seen on Wednesday over here at about 1:00 p.m. Extended time spent has been 45 minutes. Kamille Leon MD MP/CRISTEL/OLIVIA TID: [id number] RECEIPT: [id number] MTDD
[2025-03-19 03:54] LABS: Hematocrit 44.6 % (36.0-46.0); Hemoglobin 15.4 g/dL (12.2-16.2); Mean Corpuscular Hemoglobin 30.7 pg (28.0-32.0); Mean Corpuscular Volume 89.0 fL (80.0-100.0); Nucleated Red Blood Cells % 0.1 %
[2025-03-19 04:16] LABS: Alanine Aminotransferase 19 U/L (7-40); Albumin 3.7 g/dL (3.2-4.8); Alkaline Phosphatase 67 U/L (46-116); Anion Gap 6 (5-15); BUN/Creatinine Ratio 13.6 (10.0-20.0); Blood Urea Nitrogen 12 mg/dL (9-23); Calcium 9.0 mg/dL (8.7-10.4); Carbon Dioxide 28 mmol/L (20-31); Potassium 4.7 mmol/L (3.5-5.1); Sodium 142 mmol/L (136-145); Total Protein 5.9 g/dL (5.7-8.2)
[2025-03-19 04:17] LABS: Bilirubin, Total 0.7 mg/dL (0.2-1.0)
[2025-03-19 04:36] LABS: Chloride 108 mmol/L (98-107); Glucose 107 mg/dL (74-106)
--- NOTE | 2025-03-19 06:07 | ECG ---
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
[2025-03-19 07:32] VITALS: PULSE 64; RESP 14; O2SAT 97
--- NOTE | 2025-03-19 07:38 | ECG ---
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
[2025-03-19] MEDS: DIGOXIN 0.125 MG TAB PO SCH (10:19)
--- NOTE | 2025-03-19 11:52 | DVHPN2 ---
Progress Note - Dictate Date Seen: Mar 19, 2025 Medical Necessity Reason Pt with a Central, PICC or Fol: No Subjective Patient was seen and evaluated in follow up in the ICU. Patient reports feeling better today. Patient is pending pacemaker interrogation this afternoon. CBC and Chemistry are unremarkable. vital signs Vital Sign Date Time Temp Pulse Resp B/P (MAP) Pulse Ox O2 Delivery O2 Flow Rate FiO2 03/19/25 10:19 72 03/19/25 10:00 13 125/63 (83) 97 03/19/25 07:32 Room Air* 0 21 03/19/25 07:27 97.5 97.5 Total Intake and Output 03/18/25 03/18/25 03/19/25 15:00 23:00 07:00 Intake Total 99.96 ml 1350 ml Balance 99.96 ml 1350 ml medications Current Medications Medications Dose Ordered Sig/Lyndsey Route Start Time Stop Time Status Last Admin Dose Admin Nitroglycerin 0.4 mg Q5MINP PRN SL 03/18/25 06:15 Morphine Sulfate 2 mg Q30M PRN IV 03/18/25 06:15 Amiodarone HCl 200 mg Q12HR PO 03/18/25 22:00 03/19/25 10:18 200 MG Digoxin 0.125 mg DAILY PO 03/19/25 10:00 03/19/25 10:19 0.125 MG Apixaban 5 mg BID PO 03/18/25 22:00 03/19/25 10:19 5 MG objective GENERAL: Alert and oriented x 3. No acute distress. Obese. EYES: PERRL, EOMI. Anicteric. HENT: Moist mucous membranes. LUNGS: Decreased breath sounds. CARDIOVASCULAR: Irregular rate and rhythm. ABDOMEN: Soft, nontender and nondistended. EXTREMITIES: No edema. NEUROLOGIC: No focal neurological deficits. SKIN: Warm, dry. laboratory and microbiology Laboratory Tests 03/19/25 03:20 Test 03/19/25 03:20 Range/Units Serum Glucose 107 H 74-106 mg/dL Problem List Atrial fibrillation with rapid ventricular response. History of permanent pacemaker. Assessment/Plan Continued all current supportive medical care. Patient is advised for outpatient followup in the next few days. Counseling done, questions answered, discussion done. At this time, ideally, she needs a beta-bailey like metoprolol, but her blood pressure is on the lower side. At this time, I prefer to put her on amiodarone and digoxin until we see her for further. The indications and risks of Eliquis also have been discussed. Full counseling was provided. Amiodarone. Eliquis. Digoxin. Morphine for pain management. Additional plan as per the hospital course. Critical care time of 45 minutes provided to include time spent evaluation of patient at bedside, when appropriate patient/family education for diagnosis, treatment plan, review of pertinent medical information and discussion of care with specialty providers and PCP. Plan discussed with: Patient CHRISTIE GARCIA MD Mar 19, 2025 11:52
--- NOTE | 2025-03-19 13:31 | ECG ---
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
[2025-03-19] MEDS ORDERED: APIX5TAB PO (13:53)
[2025-03-19] MEDS ORDERED: DIGO1TAB48 PO (13:53)
[2025-03-19] MEDS ORDERED: AMIO200T13 PO (13:53)
--- NOTE | 2025-03-19 14:00 | DVHDS2 ---
Discharge Summary Date of Admission Mar 18, 2025 at 06:06 Date of Discharge: Mar 19, 2025 Labs/Diagnostic Data: Laboratory Results Test 03/19/25 03:20 03/18/25 07:53 03/18/25 00:18 03/17/25 23:29 White Blood Count 7.1 10^3/uL (4.4-10.8) Red Blood Count 5.01 10^6/uL (4.0-5.20) Hemoglobin 15.4 g/dL (12.2-16.2) Hematocrit 44.6 % (36.0-46.0) Mean Corpuscular Volume 89.0 fL (80.0-100.0) Mean Corpuscular Hemoglobin 30.7 pg (28.0-32.0) Mean Corpuscular Hemoglobin Concent 34.5 g/dL (32.0-36.0) Red Cell Distribution Width 13.2 % (11.8-14.3) Platelet Count 200 10^3/uL (140-450) Mean Platelet Volume 7.7 fL (6.9-10.8) Neutrophils (%) (Auto) 63.0 % (37.0-80.0) Lymphocytes (%) (Auto) 25.7 % (10.0-50.0) Monocytes (%) (Auto) 8.9 % (0.0-12.0) Eosinophils (%) (Auto) 1.9 % (0.0-7.0) Basophils (%) (Auto) 0.5 % (0.0-2.0) Neutrophils # (Auto) 4.5 10 ^3/uL (1.6-8.6) Lymphocytes # (Auto) 1.8 10 ^3/uL (0.4-5.4) Monocytes # (Auto) 0.6 10 ^3/uL (0-1.3) Eosinophils # (Auto) 0.1 10 ^3/uL (0-0.8) Basophils # (Auto) 0 10 ^3/uL (0-0.2) Nucleated Red Blood Cells 0.1 % Sodium Level 142 mmol/L (136-145) Potassium Level 4.7 mmol/L (3.5-5.1) Chloride Level 108 mmol/L (98-107) Carbon Dioxide Level 28 mmol/L (20-31) Anion Gap 6 (5-15) Blood Urea Nitrogen 12 mg/dL (9-23) Creatinine 0.88 mg/dL (0.550-1.02) Glomerular Filtration Rate Calc 74 mL/min (>90) BUN/Creatinine Ratio 13.6 (10.0-20.0) Serum Glucose 107 mg/dL (74-106) Calcium Level 9.0 mg/dL (8.7-10.4) Total Bilirubin 0.7 mg/dL (0.2-1.0) Aspartate Amino Transferase (AST) 20 U/L (13-40) Alanine Aminotransferase (ALT) 19 U/L (7-40) Alkaline Phosphatase 67 U/L (46-116) Total Protein 5.9 g/dL (5.7-8.2) Albumin 3.7 g/dL (3.2-4.8) Digoxin Level 0.80 ng/mL (0.8-2) Magnesium Level 2.0 mg/dL (1.6-2.6) Troponin I High Sensitivity 8 ng/L (</=34) Urine Color Colorless (Yellow) Urine Clarity Clear (Clear) Urine pH 7.0 (5.0-9.0) Urine Specific [place] 1.003 (1.001-1.035) Urine Protein Negative (Negative) Urine Ketones Trace (Negative) Urine Blood Negative /uL (Negative) Urine Nitrite Negative (Negative) Urine Bilirubin Negative (Negative) Urine Urobilinogen Normal mg/dL (Negative) Urine Leukocyte Esterase Negative /uL (Negative) Urine RBC <1 /hpf (0 - 4) Urine Microscopic WBC 2 /HPF (0-5) Urine Squamous Epithelial Cells Few /hpf (<5) Urine Bacteria None seen /hpf (None Seen) Urine Glucose Normal mg/dL (Normal) Test 03/17/25 22:57 Prothrombin Time 10.3 sec (9.3-11.8) Prothrombin Time INR 0.97 (0.9-1.15) Activated Partial Thromboplast Time 26.2 SEC (24.5-34.5) Thyroid Stimulating Hormone (TSH) 2.67 uIU/mL (0.55-4.78) Free Thyroxine (T4) Calculated 1.38 ng/dL (0.89-1.76) Other Laboratory Tests 03/19/25 03:20 Brief Hx & Hospital Course: Patient is a 65-year-old female past medical history of atrial fibrillation with pacemaker, really not taking any medications who presented with atrial fibrillation with RVR on the rate of 230. Patient was started on amiodarone drip. She was evaluated by cardiology who increased her amiodarone and started her on digoxin. Patient ultimately converted to rate controlled rhythm that was paced. Patient was monitored overnight without any hemodynamic stability subsequently noted. She was noted to require some IV fluids due to brief episodes of hypotension which resolved 24 hours prior to discharge. Patient had her pacemaker interrogated. TTE was done which showed LVEF of 45% which was borderline reduced. There were no valve abnormalities. Patient did not show signs of being fluid overloaded. Patient was discharged on amiodarone 200 mg twice daily for 30 days and digoxin 0.125 mg daily, and Eliquis 5 mg p.o. twice daily. She was counseled on bleeding risks while on Eliquis. Patient was discharged in stable condition. Patient is to follow-up with her bell staff, Dr. Castellanos as scheduled later this week. [facility] case management to assist with arranging appointments. Condition at Discharge: Good Final Diagnosis/Problems List Atrial Fibrillation with RVR Secondary Diagnosis: HFrEF, Reduced EF 45%, Acute History of Pacemaker Discharge Disposition: Home Discharge Instruct/Medications Diet: Cardiac 2g Na,low cholest Activity: No Restrictions, As Tolerated Follow Up/Referral: Follow up with bell staff, Dr. Castellanos. Medications: Digoxin Amioadarone Eliquis to prevent stroke from atrial fibrillation. If you fall, hit your head, have any GI bleeding, you need to come immediately to the ER to be checked. Scheduled Amiodarone HCl (Amiodarone HCl), 200 MG PO Q12HR Apixaban Base (Eliquis), 5 MG PO BID Digoxin (Lanoxin), 0.125 MG PO DAILY Discharge Statement: "Patient was advised to return to the ER or call 911 if any headaches, dizziness, shortness of breath, chest pain, abdominal pain, bleeding, fevers, or worsening of medical condition. Patient was counseled about treatment plan, medications, possible side effects, patientverbalized understanding. All questions were answered to the best of my ability. This discharge took greater then 30 minutes in planning, reviewing documentation, counseling the patient, and discussing with other team members." ASSESSMENT ASSESSMENT Assessment Atrial Fibrillation with RVR MESFIN TERESA DO Mar 19, 2025 14:00
[2025-03-19 14:11] VITALS: BP 138/72; PULSE 55; RESP 20; TEMP 97.5; O2SAT 97
--- NOTE | 2025-03-20 21:50 | DVHPN2 ---
Progress Note - Dictate Date Seen: Mar 20, 2025 Medical Necessity Reason Pt with a Central, PICC or Fol: No Subjective Patient was seen and evaluated in follow up in the ICU. Patient denies any complaints. She reports feeling better since admission. Echocardiogram shows an EF of 45%. Patient is cardiac stable for discharge. Advised for outpatient follow up with me. vital signs Vital Sign Date Time Temp Pulse Resp B/P (MAP) Pulse Ox O2 Delivery O2 Flow Rate FiO2 03/19/25 14:11 97.5 55 20 97 03/19/25 14:00 135/63 (87) 03/19/25 07:32 Room Air* 0 21 medications Current Medications Medications Dose Ordered Sig/Lyndsey Route Start Time Stop Time Status Last Admin Dose Admin Nitroglycerin 0.4 mg Q5MINP PRN SL 03/18/25 06:15 Morphine Sulfate 2 mg Q30M PRN IV 03/18/25 06:15 Amiodarone HCl 200 mg Q12HR PO 03/18/25 22:00 03/19/25 10:18 200 MG Digoxin 0.125 mg DAILY PO 03/19/25 10:00 03/19/25 10:19 0.125 MG Apixaban 5 mg BID PO 03/18/25 22:00 03/19/25 10:19 5 MG objective GENERAL: Alert and oriented x 3. No acute distress. Obese. EYES: PERRL, EOMI. Anicteric. HENT: Moist mucous membranes. LUNGS: Decreased breath sounds. CARDIOVASCULAR: Irregular rate and rhythm. ABDOMEN: Soft, nontender and nondistended. EXTREMITIES: No edema. NEUROLOGIC: No focal neurological deficits. SKIN: Warm, dry. laboratory and microbiology Laboratory Tests 03/19/25 03:20 Test 03/19/25 03:20 Range/Units Serum Glucose 107 H 74-106 mg/dL Problem List Atrial fibrillation with rapid ventricular response. History of permanent pacemaker. Assessment/Plan Continued all current supportive medical care. Patient is advised for outpatient followup in the next few days. Counseling done, questions answered, discussion done. At this time, ideally, she needs a beta-bailey like metoprolol, but her blood pressure is on the lower side. At this time, I prefer to put her on amiodarone and digoxin until we see her for further. The indications and risks of Eliquis also have been discussed. Full counseling was provided. Amiodarone. Eliquis. Digoxin. Morphine for pain management. Additional plan as per the hospital course. Critical care time of 45 minutes provided to include time spent evaluation of patient at bedside, when appropriate patient/family education for diagnosis, treatment plan, review of pertinent medical information and discussion of care with specialty providers and PCP. Plan discussed with: Patient CHRISTIE GARCIA MD Mar 20, 2025 21:50
== END 2025-03-19 15:00 | disposition home or self-care (01) | DRG 309 ==
LOC: ER 22:32 → EDBD 22:32 → OVERFLOW 03-18 06:06
PROVIDERS: ADMIT Internal Medicine; ATTEND Internal Medicine
DX: I48.91 Unspecified atrial fibrillation (principal); I50.22 Chronic systolic (congestive) heart failure; I95.9 Hypotension, unspecified; Z88.6 Allergy status to analgesic agent; Z88.3 Allergy status to other anti-infective agents; Z95.810 Presence of automatic (implantable) cardiac defibrillator; Z79.01 Long term (current) use of anticoagulants
CPT/HCPCS: 36415; 71045; 80053; 80162; 81001; 83735; 84439; 84443; 84484; 85025; 85610; 85730; 87081; 93005; 93306; 96365; 96375; G0378; J2405